=== PATIENT | male | born 1985 | race Hispanic/Latino ===

== ENCOUNTER 2021-06-17 22:26 | Emergency (ER) | payer SELFPAY ==
[~2021-06-17] VITALS: Ht 175.3 cm; Wt 90.7 kg
[2021-06-17] MEDS ORDERED: IBUPROFEN 600 MG TAB PO STA (22:57)
[2021-06-17] MEDS ORDERED: IBUPROFEN 600 MG TAB ONE (23:12)
== END 2021-06-18 01:47 | disposition home or self-care (01) ==
LOC: ER 22:35
DX: S82.851A Displaced trimalleolar fracture of right lower leg, initial encounter for closed fracture (principal); X58.XXXA Exposure to other specified factors, initial encounter
CPT/HCPCS: 99283